=== PATIENT | female | born 1980 | race African-American/Black ===

== ENCOUNTER 2018-06-29 17:30 | Emergency (ER) | payer MEDICAID ==
[~2018-06-29] VITALS: Ht 165.1 cm; Wt 43.5 kg
[2018-06-29] MEDS ORDERED: ANXIETY MEDICATION (17:51)
[2018-06-29] MEDS ORDERED: CLARITIN10 MG PO (17:52)
[2018-06-29] MEDS ORDERED: ACYCLOVIR 400400 MG (17:52)
[2018-06-29] MEDS ORDERED: OXYCONTIN10 M1 PO (17:52)
[2018-06-29] MEDS ORDERED: VITAMIN D1000 UNI1 PO (17:52)
[2018-06-29] MEDS ORDERED: LYRICA 50 MG50 MG PO (17:52)
[2018-06-29] MEDS ORDERED: FLEXERIL PO (17:53)
[2018-06-29] MEDS ORDERED: BUTALB-APAP-CA1 EACH PO (17:53)
[2018-06-29 18:55] LABS: HEMOGLOBIN 13.3 gm/dL (12.0-15.0); MCH 30.8 pg (26.0-34.0); MCHC 33.1 g/dL (28.0-37.0); MCV 93.1 fL (80.0-100.0); MPV 7.3 fl. (7.2-11.1); RBC 4.3 mil/uL (4.20-5.00); RDW-CV 14.6 % (10.5-14.5); WBC 4.9 thou/uL (4.0-11.0)
[2018-06-29 19:04] LABS: CALCIUM 8.8 mg/dL (8.5-10.1); CREATININE 0.9 mg/dL (0.6-1.3); POTASSIUM 3.5 mmol/L (3.5-5.1)
[2018-06-29 19:09] LABS: ALBUMIN 3.5 g/dL (3.4-5.0); ALCOHOL < 10 mg/dL (<10); SALICYLATE 6.3 mg/dL (2.8-20.0); TOTAL BILIRUBIN 0.3 mg/dL (<0.1-1.0); TOTAL PROTEIN 7.3 g/dL (6.4-8.2)
[2018-06-29 19:10] LABS: ACETAMINOPHEN < 2 ug/mL (10-30)
[2018-06-29 20:14] LABS: URINE BILIRUBIN NEGATIVE (Negative); URINE BLOOD NEGATIVE (Negative); URINE CLARITY HAZY; URINE COLOR YELLOW; URINE GLUCOSE-RANDOM NEGATIVE (Negative); URINE KETONES NEGATIVE (Negative); URINE LEUKOCYTES NEGATIVE (Negative); URINE NITRITE POSITIVE (Negative); URINE PROTEIN NEGATIVE (Negative); URINE SPECIFIC GRAVITY >= 1.030 (1.005-1.030); URINE UROBILINOGEN 0.2 E.U./dl (0.2-1.0)
[2018-06-29 20:21] LABS: BACTERIA >30 Many /HPF (None Seen); CASTS None Seen /LPF (None Seen); CRYSTALS None Seen /LPF (None Seen); MUCUS 4-6 Moderate strn/LPF (None Seen); SQUAMOUS >10 Many /LPF (0-3)
[2018-06-29 20:22] LABS: AMP/METHAMP Negative (Negative); BARBITURATES POSITIVE (Negative); BENZODIAZEPINES Negative (Negative); COCAINE Negative (Negative); METHADONE Negative (Negative); OPIATES POSITIVE (Negative); PCP Negative (Negative); THC POSITIVE (Negative); URINE RBC None Seen /HPF (0-2); URINE WBC 0-5 Rare /HPF (0-5)
== END 2018-06-30 10:15 | disposition still patient (30) ==
LOC: M.ERS 17:30
PROVIDERS: Personal Emergency Response Attendant
DX: R45.851 Suicidal ideations (principal); M79.7 Fibromyalgia; G89.4 Chronic pain syndrome; F41.9 Anxiety disorder, unspecified; F32.9 Major depressive disorder, single episode, unspecified; G43.909 Migraine, unspecified, not intractable, without status migrainosus